=== PATIENT | male | born 1930 | race Caucasian/White ===

== ENCOUNTER → 2016-10-08 | Outpatient (CLI) | payer MEDICARE ==
[~2016-10-08] MED LIST: FINASTERIDE5 MG PO; HUMALOG100 UNIT/1 SQ; HYDROXYZINE HCL10 MG PO; LIPITOR TAB 2020 MG PO; NORVASC 5 MG TAB5 MG PO; NOVOLIN 70100 UNITS/ SC; OMEPRAZOLE20 M1 PO; PLAVIX75 MG PO; ULTRAM50 MG PO; VITAMIN B12-FO1 EACH PO; VITAMIN D31000 UNIT PO; [UNRECOGNIZED DRUG - CODE] SC
== END ==
LOC: EXRD 14:39
DX: M25.511 Pain in right shoulder (principal); J98.4 Other disorders of lung
CPT/HCPCS: 73030

== ENCOUNTER → 2016-10-14 | Outpatient (CLI) | payer MEDICARE | LOC: RAD 10:13 | DX: R93.8 Abnormal findings on diagnostic imaging of other specified body structures (principal) | CPT/HCPCS: 71020 ==

== ENCOUNTER → 2016-10-16 | Outpatient (CLI) | payer MEDICARE | LOC: KOH-I 12:48 | DX: R91.8 Other nonspecific abnormal finding of lung field (principal); M25.511 Pain in right shoulder; Z87.891 Personal history of nicotine dependence; R59.0 Localized enlarged lymph nodes | CPT/HCPCS: 71250 ==

== ENCOUNTER → 2016-10-25 | Day surgery (SDC) | payer MEDICARE | END | disposition home or self-care (01) | LOC: OR 06:19 | PROVIDERS: Internal Medicine Pulmonary Disease | PROC: 0B968ZX Drainage of Right Lower Lobe Bronchus, Via Natural or Artificial Opening Endoscopic, Diagnostic (ICD-10-PCS; 2016-10-25) | PROC: 0BB68ZX Excision of Right Lower Lobe Bronchus, Via Natural or Artificial Opening Endoscopic, Diagnostic (ICD-10-PCS; 2016-10-25) | PROC: 0BB68ZX Excision of Right Lower Lobe Bronchus, Via Natural or Artificial Opening Endoscopic, Diagnostic (ICD-10-PCS; principal; 2016-10-25 07:30) | DX: R91.8 Other nonspecific abnormal finding of lung field (principal); R59.0 Localized enlarged lymph nodes; M19.90 Unspecified osteoarthritis, unspecified site; E11.9 Type 2 diabetes mellitus without complications; I10 Essential (primary) hypertension; E78.5 Hyperlipidemia, unspecified; G47.00 Insomnia, unspecified; E53.8 Deficiency of other specified B group vitamins; E55.9 Vitamin D deficiency, unspecified; Z87.891 Personal history of nicotine dependence; Z79.4 Long term (current) use of insulin; Z79.02 Long term (current) use of antithrombotics/antiplatelets; Z79.899 Other long term (current) drug therapy | CPT/HCPCS: 71010; 76000; 82962; J7030 ==

== ENCOUNTER → 2016-11-15 | Outpatient (CLI) | payer MEDICARE ==
[~2016-11-15] VITALS: Ht 167.6 cm; Wt 70.8 kg
[2016-11-15 08:06] LABS: HEMOGLOBIN 12.1 gm/dl (14.0-17.5); RED BLOOD COUNT 3.92 M/UL (4.20-5.50); WHITE BLOOD COUNT 9.3 K/UL (4.5-11.0)
== END ==
LOC: CT 06:22
PROVIDERS: Internal Medicine Pulmonary Disease
DX: C34.31 Malignant neoplasm of lower lobe, right bronchus or lung (principal); Z79.02 Long term (current) use of antithrombotics/antiplatelets; Z79.4 Long term (current) use of insulin; Z79.891 Long term (current) use of opiate analgesic; Z79.899 Other long term (current) drug therapy; H16.139 Photokeratitis, unspecified eye; F41.9 Anxiety disorder, unspecified; M19.90 Unspecified osteoarthritis, unspecified site; N40.0 Benign prostatic hyperplasia without lower urinary tract symptoms; E11.9 Type 2 diabetes mellitus without complications; Z87.891 Personal history of nicotine dependence; I10 Essential (primary) hypertension; E78.5 Hyperlipidemia, unspecified; G47.00 Insomnia, unspecified; L57.0 Actinic keratosis; R59.0 Localized enlarged lymph nodes; M25.511 Pain in right shoulder; E53.8 Deficiency of other specified B group vitamins; E55.9 Vitamin D deficiency, unspecified
CPT/HCPCS: 36415; 71010; 77012; 82962; 85027; 85610; 85730; 88341; 88342